=== PATIENT | female | born 1960 | race Caucasian/White ===

== ENCOUNTER → 2021-01-10 | Day surgery (SDC) | payer MEDICARE, OTHER ==
[~2021-01-10] MED LIST: ASPIRIN EC81 M1 PO; BACTROBAN NASAL1 GM TOP; BANOPHEN25 MG PO; CALCIUM 600 +1 EAC3 PO; CALCIUM WITH V1 EAC2 PO; CARAFATE1 GM PO; CETIRIZINE HCL10 MG PO; CITALOPRAM HBR20 MG PO; ESTRACE1 MG PO; FEROSUL325 MG PO; FLUTICASONE PRO16 GM INH; GLIMEPIRIDE4 MG PO; HCTZ12.5 MG PO; JANUVIA 100MG100 MG PO; LANTUS **100 UNITS/ SC; LANTUS SOL100 UNIT/1 SC; LEVAQUIN250 MG PO; LIPITOR 10MG TA10 MG PO; LISINOPRIL 10MG10 MG PO; LISINOPRIL20 MG PO; LOVAZA1 GM PO; MINOXIDIL2.5 MG PO; MONTELUKAST SOD10 MG PO; NORCO 5-325 TA1 EACH PO; OMEPRAZOLE40 MG PO; ONDANSETRON ODT8 MG PO; OZEMPIC1 MG/0.75 SC; SUCRALFATE1 GM PO; TOFRANIL25 MG PO; VITAMIN D-40010 MCG PO
[2021-01-10 09:18] LABS: HCT 44.5 % (37.0-47.0); HGB 14.9 g/dl (12.5-16.0); MCH 29.2 pg (25.0-31.0); MCHC 33.5 g/dL (32.0-36.0); MCV 87.3 fL (78.0-100.0); MPV 12.6 fL (6.0-9.5); RBC 5.1 M/uL (4.20-5.40); RDW 13.8 % (11.5-14.0)
[2021-01-10 09:38] LABS: ALBUMIN 3.5 g/dL (3.4-5.0); BILIRUBIN - TOTAL 0.6 mg/dL (0.2-1.0); BUN/CREAT RATIO (CALC) 17.1 RATIO; CREATININE 1.11 mg/dL (0.51-0.95); GLOBULIN (CALCULATION) 3.7 g/dL; TOTAL PROTEIN 7.2 g/dL (6.4-8.2)
== END | disposition home or self-care (01) ==
LOC: FAS 08:26
PROVIDERS: Surgery
DX: K74.02 Hepatic fibrosis, advanced fibrosis (principal); K83.1 Obstruction of bile duct; I25.10 Atherosclerotic heart disease of native coronary artery without angina pectoris; I10 Essential (primary) hypertension; D64.9 Anemia, unspecified; J44.9 Chronic obstructive pulmonary disease, unspecified; E11.9 Type 2 diabetes mellitus without complications; E78.00 Pure hypercholesterolemia, unspecified; K21.9 Gastro-esophageal reflux disease without esophagitis; G47.30 Sleep apnea, unspecified; M19.90 Unspecified osteoarthritis, unspecified site; F17.210 Nicotine dependence, cigarettes, uncomplicated; Z20.822 Contact with and (suspected) exposure to COVID-19; Z96.659 Presence of unspecified artificial knee joint; Z98.84 Bariatric surgery status; Z79.899 Other long term (current) drug therapy; Z88.8 Allergy status to other drugs, medicaments and biological substances; Z90.49 Acquired absence of other specified parts of digestive tract; Z83.42 Family history of familial hypercholesterolemia; Z88.3 Allergy status to other anti-infective agents; Z88.6 Allergy status to analgesic agent; Z98.890 Other specified postprocedural states
CPT/HCPCS: 36415; 80053; 93005; 94640; J1100; J2250; J2405; J2704; J2710; J3010; J7120

== ENCOUNTER → 2021-05-08 | Day surgery (SDC) | payer MEDICARE, OTHER ==
[~2021-05-08] VITALS: Ht 154.9 cm; Wt 93.4 kg
[2021-05-08 06:46] LABS: HCT 43.1 % (37.0-47.0); HGB 14.4 g/dl (12.5-16.0); MCH 30.9 pg (25.0-31.0); MCHC 33.4 g/dL (32.0-36.0); MCV 92.5 fL (78.0-100.0); MPV 13.2 fL (6.0-9.5); RBC 4.66 M/uL (4.20-5.40); RDW 12.9 % (11.5-14.0); WBC 9.8 K/uL (4.0-10.5)
[2021-05-08 06:55] LABS: ALBUMIN 3.2 g/dL (3.4-5.0); BILIRUBIN - TOTAL 0.3 mg/dL (0.2-1.0); BUN/CREAT RATIO (CALC) 19.1 RATIO; CREATININE 0.94 mg/dL (0.51-0.95); GLOBULIN (CALCULATION) 4.1 g/dL; POTASSIUM 3.8 mmol/L (3.5-5.1); TOTAL PROTEIN 7.3 g/dL (6.4-8.2)
== END | disposition home or self-care (01) ==
LOC: FAS 06:02
PROVIDERS: Orthopaedic Surgery
DX: M77.12 Lateral epicondylitis, left elbow (principal); G56.02 Carpal tunnel syndrome, left upper limb; D64.9 Anemia, unspecified; F32.9 Major depressive disorder, single episode, unspecified; K21.9 Gastro-esophageal reflux disease without esophagitis; Z79.84 Long term (current) use of oral hypoglycemic drugs; E11.9 Type 2 diabetes mellitus without complications
CPT/HCPCS: 36415; 80053; J1040; J1170; J2250; J2405; J2704; J3010; J7120

== ENCOUNTER → 2022-04-29 | Day surgery (SDC) | payer MEDICARE, OTHER ==
[~2022-04-29] VITALS: Ht 155 cm; Wt 100.0 kg
[~2022-04-29] MED LIST changes: +CELEXA20 MG PO; +CLARITIN10 MG PO; +LYRICA 50MG CAP50 MG PO; +THIORIDAZINE HC25 MG PO
[2022-04-29 10:47] LABS: HCT 49.6 % (37.0-47.0); HGB 16.6 g/dl (12.5-16.0); MCH 29.2 pg (25.0-31.0); MCHC 33.5 g/dL (32.0-36.0); MCV 87.2 fL (78.0-100.0); MPV 12.1 fL (6.0-9.5); RBC 5.69 M/uL (4.20-5.40); WBC 14.3 K/uL (4.0-10.5)
[2022-04-29 11:09] LABS: BUN/CREAT RATIO (CALC) 20.2 RATIO; CREATININE 0.99 mg/dL (0.51-0.95); POTASSIUM 4.1 mmol/L (3.5-5.1)
== END | disposition home or self-care (01) ==
LOC: FAS 09:13
PROVIDERS: Orthopaedic Surgery
DX: M65.311 Trigger thumb, right thumb (principal); M65.331 Trigger finger, right middle finger; M77.12 Lateral epicondylitis, left elbow; I10 Essential (primary) hypertension; F17.200 Nicotine dependence, unspecified, uncomplicated; Z88.6 Allergy status to analgesic agent; Z88.8 Allergy status to other drugs, medicaments and biological substances; Z79.899 Other long term (current) drug therapy
CPT/HCPCS: 36415; 80048; 93005; J1040; J2250; J2405; J2704; J3010; J7120